=== PATIENT | female | born 1975 | race Caucasian/White ===

== ENCOUNTER → 2018-05-06 | Outpatient (CLI) | payer OTHER ==
[2018-05-06] MEDS: GADOBUTROL 10 MMOL/10 ML VIAL IV (15:30)
[2018-05-06 15:32] LABS: ISTAT CREATININE 0.8 mg/dL (0.6-1.1)
== END | disposition home or self-care (01) ==
LOC: KCIC MRI 14:37
DX: G43.809 Other migraine, not intractable, without status migrainosus (principal)
CPT/HCPCS: 70553; 82565; A9585